=== PATIENT | male | born 1985 | race American Indian/Alaskan Native ===

== ENCOUNTER 2017-01-27 14:14 | Emergency (ER) | payer OTHER ==
[~2017-01-27] VITALS: Ht 175.3 cm; Wt 180.0 kg
[2017-01-27] MEDS ORDERED: METF500T4 PO (14:56)
[2017-01-27 15:08] LABS: HEMATOCRIT 48.8 % (39.2-51.8); HEMOGLOBIN 16.6 g/dL (13.7-18.0); WHITE BLOOD COUNT 8.1 x10^3/uL (3.4-10)
[2017-01-27 15:35] LABS: ACETAMINOPHEN < 2 mcg/mL (10-30); BLOOD UREA NITROGEN 14 mg/dL (7-18)
[2017-01-27 15:53] VITALS: BP 146/82
== END 2017-01-27 16:51 | disposition home or self-care (01) ==
LOC: ED 16:45
DX: F32.9 Major depressive disorder, single episode, unspecified (principal); E11.9 Type 2 diabetes mellitus without complications
CPT/HCPCS: 36415; 80048; 80307; 80329; 82040; 85025; 99284; G0480